=== PATIENT | female | born 1980 | race Two or more races ===

== ENCOUNTER 2025-05-02 12:18 | Emergency (ER) | payer OTHER ==
[~2025-05-02] VITALS: Ht 160 cm; Wt 84.1 kg
[2025-05-02 12:21] VITALS: BP 117/78; PULSE 79; RESP 16; TEMP 98.1; O2SAT 97
[2025-05-02] MEDS ORDERED: PERMETHRIN 5% 60 GM CREAM TP ONE (12:45)
[2025-05-02] MEDS: IVERMECTIN 3 MG TABLET PO ONE (13:20)
[2025-05-02] MEDS: ACETAMINOPHEN 500 MG TABLET PO ONE (13:21)
== END 2025-05-02 13:54 | disposition home or self-care (01) ==
LOC: EMS 12:18
DX: S80.862A Insect bite (nonvenomous), left lower leg, initial encounter (principal); S40.862A Insect bite (nonvenomous) of left upper arm, initial encounter; S80.861A Insect bite (nonvenomous), right lower leg, initial encounter; S40.861A Insect bite (nonvenomous) of right upper arm, initial encounter; L29.9 Pruritus, unspecified; B85.0 Pediculosis due to Pediculus humanus capitis; Z65.3 Problems related to other legal circumstances; W57.XXXA Bitten or stung by nonvenomous insect and other nonvenomous arthropods, initial encounter
CPT/HCPCS: 99283